=== PATIENT | male | born 1955 | race American Indian/Alaskan Native ===

== ENCOUNTER 2017-12-06 20:15 | Emergency (ER) | payer BC ==
[2017-12-06 20:50] LABS: Basophils % (Auto) 0.5 % (0.0-1.8); Eosinophils % (Auto) 0.2 % (0.0-4.3); Hematocrit 52.5 % (35.5-45.6); Hemoglobin 17.4 gm/dl (11.8-15.2); Lymphocytes # (Auto) 1.8 K/mm3 (1.2-5.4); Lymphocytes % (Auto) 20.7 % (13.4-35.0); Mean Corpuscular HGB Conc 33 % (32-34); Mean Corpuscular Hemoglobin 30 pg (28-32); Mean Corpuscular Volume 91 fl (84-94); Monocytes # (Auto) 0.6 K/mm3 (0.0-0.8); Platelet Count 278 K/mm3 (140-440); Red Blood Count 5.78 M/mm3 (3.65-5.03)
[2017-12-06 20:56] LABS: BUN/Creatinine Ratio 13; Blood Urea Nitrogen 14 mg/dL (9-20); Calcium 9.2 mg/dL (8.4-10.2); Hemolysis Index 9
--- NOTE | 2017-12-06 20:57 | XRay Report ---
FINAL REPORT PROCEDURE: XR CHEST ROUTINE 2V TECHNIQUE: PA and lateral chest radiographs were obtained. CPT 60338 HISTORY: Shortness of breath COMPARISON: No prior studies are available for comparison. FINDINGS: Heart: Normal. Mediastinum/Vessels: Normal. Lungs/Pleural space: Normal. Bony thorax: No acute osseous abnormality. Other: IMPRESSION: There is no evidence of an acute cardiopulmonary process.
[2017-12-07 00:38] VITALS: BP 154/105
[2017-12-07] MEDS ORDERED: ZOFRAN IV ONE (00:56)
[2017-12-07] MEDS ORDERED: MORPHINE IV ONE (00:56)
[2017-12-07] MEDS ORDERED: NACL 0.9% 1000 ML 1,000 ML IV ONE (00:56)
--- NOTE | 2017-12-07 01:00 | Emergency Department Report ---
ED Abdominal Pain HPI - General Chief Complaint: Back Pain/Injury Stated Complaint: SOB, HTN Time Seen by Provider: 12/07/17 00:18 Source: patient Mode of arrival: Ambulatory Limitations: No Limitations - History of Present Illness Initial Comments: Patient is 62 years old male history of kidney stone. Patient presented to the ER complaining of right flank pain. Patient stated that pain started yesterday all of a sudden. Associated with nausea and vomiting. No fever no diarrhea. MD Complaint: abdominal pain, flank pain -: days(s) Location: R flank Radiation: none Migration to: no migration Severity: severe Severity scale (0 -10): 8 Quality: stabbing Consistency: constant Associated Symptoms: nausea - Related Data Allergies Allergy/AdvReac Type Severity Reaction Status Date / Time No Known Allergies Allergy Unverified 12/06/17 20:23 ED Review of Systems ROS: Stated complaint: SOB, HTN Other details as noted in HPI Comment: All other systems reviewed and negative Constitutional: denies: chills, fever Respiratory: denies: cough, orthopnea, shortness of breath, SOB with exertion Cardiovascular: palpitations. denies: chest pain, dyspnea on exertion Gastrointestinal: abdominal pain, nausea. denies: vomiting, diarrhea, constipation, hematemesis, hematochezia Genitourinary: hematuria Neurological: denies: headache, weakness, numbness, paresthesias ED Past Medical Hx - Past Medical History Previous Medical History?: Yes Hx Hypertension: Yes Hx Headaches / Migraines: Yes Hx Kidney Stones: Yes Additional medical history: Hep C - Surgical History Past Surgical History?: No - Social History Smoking Status: Former Smoker Substance Use Type: None ED Physical Exam - General Limitations: No Limitations General appearance: alert, in no apparent distress - Head Head exam: Present: atraumatic, normocephalic - Eye Eye exam: Present: normal appearance, PERRL - ENT ENT exam: Present: normal exam, normal orophraynx, mucous membranes moist - Neck Neck exam: Present: normal inspection, full ROM. Absent: tenderness, meningismus - Respiratory Respiratory exam: Present: normal lung sounds bilaterally. Absent: respiratory distress, wheezes, rales, rhonchi, stridor, chest wall tenderness, accessory muscle use, decreased breath sounds, prolonged expiratory - Cardiovascular Cardiovascular Exam: Present: regular rate, normal rhythm, normal heart sounds - GI/Abdominal GI/Abdominal exam: Present: soft, normal bowel sounds. Absent: distended, tenderness, guarding, rebound, rigid, organomegaly, mass, bruit, pulsatile mass , hernia - Extremities Exam Extremities exam: Present: normal inspection, full ROM, normal capillary refill. Absent: calf tenderness - Back Exam Back exam: Present: normal inspection, full ROM, CVA tenderness (R). Absent: tenderness, CVA tenderness (L), muscle spasm, paraspinal tenderness, vertebral tenderness, rash noted - Neurological Exam Neurological exam: Present: alert, oriented X3, CN II-XII intact, normal gait - Skin Skin exam: Present: warm, intact, normal color ED Course Vital Signs 12/06/17 12/07/17 20:19 00:37 Temperature 98.6 F 98.1 F Pulse Rate 115 H 89 Respiratory 20 21 Rate Blood Pressure 143/108 Blood Pressure 154/105 [Left] O2 Sat by Pulse 94 97 Oximetry - Reevaluation(s) Reevaluation #1: 12/07/17 04:11 Patient stated that he is feeling much better. No nausea no vomiting. ED Medical Decision Making - Lab Data Result diagrams: 12/06/17 20:34 12/06/17 20:34 - Radiology Data Radiology results: report reviewed Referring Physician: AUGUSTO MCCOLLUM Patient Name: HARRY CARPIO Date of : 1955 Sex: Male Report Date: 2017-12-07 Report Status: [place] [address] Cat Scan Report Signed Patient: HARRY CARPIO MR#: [id number] : 1955 Acct:[id number] Age/Sex: 62 / M ADM Date: 12/06/17 Loc: ED Attending Dr: Ordering Physician: AUGUSTO MCCOLLUM Date of Service: 12/07/17 Procedure(s): CT abdomen pelvis wo con Accession Number(s): [id number] cc: AUGUSTO CMCOLLUM FINAL REPORT EXAM: CT ABDOMEN PELVIS WO CON HISTORY: ABDOMINAL PAIN/RT FLANK PAIN. TECHNIQUE: Unenhanced axial CT images of the abdomen and pelvis were obtained, with coronal and sagittal reformatted images. No prior studies are available for comparison. FINDINGS: The gallbladder is not discretely visualized, with presumed remnant portion of the cystic duct in the gallbladder fossa. Correlation with surgical history is recommended. There is minimal central intrahepatic biliary ductal prominence, and the common bile duct measures 7-8 mm in diameter. These findings would be within normal limits status post cholecystectomy. There is a metallic artifact in the right inferior hepatic lobe. Query history of prior surgery and/or trauma. The unenhanced pancreas, spleen, and adrenal glands are unremarkable. There are multiple renal cysts scattered throughout both kidneys, measuring up to 2.9 cm in the left upper pole and 4.4 cm in the right lower pole. Several additional subcentimeter renal low attenuating lesions are seen, too small to characterize. There are multiple bilateral renal calculi, as follows: dominant 1.5 cm in the left renal midpole, 5 mm in the right midpole, and 2-3 mm in the right lower pole. Additional scattered faint punctate 1-2 mm bilateral renal calculi are noted. There are no radiopaque ureteral or bladder calculi. There is no urinary tract obstruction. Evaluation of the bowel is limited due to lack of oral contrast. The stomach is collapsed, not well evaluated. There is no intestinal obstruction or free air. There is residual stool in the right colon. The descending colon, sigmoid colon, and rectum are collapsed, not well evaluated. Of note, the appendix is normal. The abdominal aorta is normal in caliber, mildly calcified. There is no pathologic abdominal or pelvic lymphadenopathy. There is no free or loculated fluid collection. The prostate gland is normal in size. The unopacified urinary bladder is unremarkable. There are [id number] spondylotic and degenerative changes in the lumbar spine, including several vacuum discs. There also mild degenerative changes at both hips and sacroiliac joints. There are mild dependent changes at both posterior lung bases. The heart is mildly enlarged, and there are coronary vascular calcifications. There is moderate elevation of the right hemidiaphragm. IMPRESSION: 1. Bilateral renal calculi, measuring up to 1.5 cm in the left renal midpole. No evidence of urinary tract obstruction. 2. Bilateral renal cysts and subcentimeter renal low attenuating lesions, too small to characterize. 3. No intestinal obstruction or free air. Normal CT appearance of the appendix. 4. Presumed prior cholecystectomy, and correlation with surgical history is recommended. Minimal central intrahepatic biliary ductal prominence, and correlation with biliary enzymes is suggested. Transcribed By: TUNG Dictated By: LAURA LINN MD Electronically Authenticated By: LAURA LINN MD Signed Date/Time: 12/07/17316 DD/ 6 TD/TT: 12/07/17316 Critical care attestation.: If time is entered above; I have spent that time in minutes in the direct care of this critically ill patient, excluding procedure time. ED Disposition Clinical Impression: Right flank pain, Kidney stones Disposition: DC-01 TO HOME OR SELFCARE Is pt being admited?: No Condition: Stable Instructions: Kidney Stones (ED), Renal Colic (ED) Referrals: ZACK RAWLS MD [Staff Physician] - 3-5 Days
[2017-12-07 01:41] LABS: Bilirubin,Urine NEG (Negative); Color,Urine Yellow (Yellow)
[2017-12-07 01:42] LABS: Blood,Urine NEG (Negative); Hyaline Casts,Urine 20 /LPF; Mucus,Urine 1+ /HPF; Urobilinogen,Urine < 2.0 mg/dL (<2.0)
--- NOTE | 2017-12-07 03:22 | Cat Scan Report ---
FINAL REPORT EXAM: CT ABDOMEN PELVIS WO CON HISTORY: ABDOMINAL PAIN/RT FLANK PAIN. TECHNIQUE: Unenhanced axial CT images of the abdomen and pelvis were obtained, with coronal and sagittal reformatted images. No prior studies are available for comparison. FINDINGS: The gallbladder is not discretely visualized, with presumed remnant portion of the cystic duct in the gallbladder fossa. Correlation with surgical history is recommended. There is minimal central intrahepatic biliary ductal prominence, and the common bile duct measures 7-8 mm in diameter. These findings would be within normal limits status post cholecystectomy. There is a metallic artifact in the right inferior hepatic lobe. Query history of prior surgery and/or trauma. The unenhanced pancreas, spleen, and adrenal glands are unremarkable. There are multiple renal cysts scattered throughout both kidneys, measuring up to 2.9 cm in the left upper pole and 4.4 cm in the right lower pole. Several additional subcentimeter renal low attenuating lesions are seen, too small to characterize. There are multiple bilateral renal calculi, as follows: dominant 1.5 cm in the left renal midpole, 5 mm in the right midpole, and 2-3 mm in the right lower pole. Additional scattered faint punctate 1-2 mm bilateral renal calculi are noted. There are no radiopaque ureteral or bladder calculi. There is no urinary tract obstruction. Evaluation of the bowel is limited due to lack of oral contrast. The stomach is collapsed, not well evaluated. There is no intestinal obstruction or free air. There is residual stool in the right colon. The descending colon, sigmoid colon, and rectum are collapsed, not well evaluated. Of note, the appendix is normal. The abdominal aorta is normal in caliber, mildly calcified. There is no pathologic abdominal or pelvic lymphadenopathy. There is no free or loculated fluid collection. The prostate gland is normal in size. The unopacified urinary bladder is unremarkable. There are [id number] spondylotic and degenerative changes in the lumbar spine, including several vacuum discs. There also mild degenerative changes at both hips and sacroiliac joints. There are mild dependent changes at both posterior lung bases. The heart is mildly enlarged, and there are coronary vascular calcifications. There is moderate elevation of the right hemidiaphragm. IMPRESSION: 1. Bilateral renal calculi, measuring up to 1.5 cm in the left renal midpole. No evidence of urinary tract obstruction. 2. Bilateral renal cysts and subcentimeter renal low attenuating lesions, too small to characterize. 3. No intestinal obstruction or free air. Normal CT appearance of the appendix. 4. Presumed prior cholecystectomy, and correlation with surgical history is recommended. Minimal central intrahepatic biliary ductal prominence, and correlation with biliary enzymes is suggested.
== END 2017-12-07 04:52 | disposition home or self-care (01) ==
LOC: ED 20:15
DX: N20.0 Calculus of kidney (principal); R10.30 Lower abdominal pain, unspecified; I10 Essential (primary) hypertension
CPT/HCPCS: 36415; 71046; 74176; 80048; 81001; 85025; 93005; 93010; 96361; 96374; 96375; 99284; J2270; J2405; J7030

== ENCOUNTER 2019-07-11 13:33 | Emergency (ER) | payer BC, OTHER ==
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
[2019-07-11 14:13] VITALS: BP 179/119
--- NOTE | 2019-07-11 14:44 | XRay Report ---
Thoracolumbar junction 3 views INDICATION: Back pain. COMPARISON: CT abdomen and pelvis without contrast from 12/07/2017. FINDINGS: VERTEBRAE: No acute fracture. Normal alignment. DISC SPACES: Multilevel mild to moderate discogenic degenerative changes are seen along the lumbar sp ine, most significant at L2-L3 and L3-L4. No significant degenerative changes are seen along the incl uded portions of the thoracic spine. FACET JOINTS: There is multilevel facet hypertrophy throughout the lumbar spine. No significant abnor mality of the visualized facets of the thoracic spine. SOFT TISSUES: There is mild aortic atherosclerosis. ADDITIONAL FINDINGS: No additional significant findings. IMPRESSION: 1. No acute abnormality of the thoracolumbar spine. 2. Mild to moderate spondylosis. Signer Name: Guy Beatty MD Signed: 07/11/2019 2:39 PM Workstation Name: [id number]
[2019-07-11] MEDS ORDERED: IBUPROFEN 800 MG TAB PO ONE (16:07)
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
== END 2019-07-11 16:29 | disposition home or self-care (01) ==
LOC: ED 13:33
DX: S13.4XXA Sprain of ligaments of cervical spine, initial encounter (principal); I10 Essential (primary) hypertension; G43.909 Migraine, unspecified, not intractable, without status migrainosus; Z87.442 Personal history of urinary calculi; Z86.19 Personal history of other infectious and parasitic diseases; Z79.1 Long term (current) use of non-steroidal anti-inflammatories (NSAID); Z79.899 Other long term (current) drug therapy; V89.2XXA Person injured in unspecified motor-vehicle accident, traffic, initial encounter; Y93.89 Activity, other specified; Y92.488 Other paved roadways as the place of occurrence of the external cause; Y99.8 Other external cause status
CPT/HCPCS: 72080; 99282